=== PATIENT | male | born 1975 | race Caucasian/White ===

== ENCOUNTER 2022-04-23 09:45 | Emergency (ER) | payer OTHER ==
[~2022-04-23] VITALS: Ht 165.1 cm; Wt 57.0 kg
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
[2022-04-23 11:47] VITALS: BP 139/97
== END 2022-04-23 11:47 | disposition home or self-care (01) ==
LOC: ER 09:48
DX: S80.212A Abrasion, left knee, initial encounter (principal); S60.512A Abrasion of left hand, initial encounter; M25.512 Pain in left shoulder; Z28.310 Unvaccinated for COVID-19; V69.9XXA Occupant (driver) (passenger) of heavy transport vehicle injured in unspecified traffic accident, initial encounter; Y92.410 Unspecified street and highway as the place of occurrence of the external cause
CPT/HCPCS: 70450; 71045; 72125; 73030; 73562

== ENCOUNTER 2022-04-26 11:36 | Emergency (ER) | payer OTHER ==
[~2022-04-26] VITALS: Ht 165.1 cm; Wt 63.5 kg
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
[2022-04-26] MEDS ORDERED: ORPHENADRINE 60 MG/2 ML (NORFLEX) AMP (ED ONLY) IM ONE (13:30)
[2022-04-26] MEDS ORDERED: METH-732 PO (13:56)
[2022-04-26] MEDS ORDERED: PRD50T PO (13:56)
[2022-04-26 14:16] VITALS: BP 169/99
== END 2022-04-26 14:16 | disposition home or self-care (01) ==
LOC: EDUNIT# 11:36 → ER 11:39
DX: S40.012A Contusion of left shoulder, initial encounter (principal); F17.210 Nicotine dependence, cigarettes, uncomplicated; V85.5XXA Driver of special construction vehicle injured in nontraffic accident, initial encounter; Y92.410 Unspecified street and highway as the place of occurrence of the external cause
CPT/HCPCS: 99284

== ENCOUNTER 2022-09-01 00:38 | Emergency (ER) | payer OTHER ==
[~2022-09-01 00:38] MED LIST: METH-732 PO; PRD50T PO
[2022-09-01] MEDS ORDERED: KETOROLAC 60 MG/2 ML VIAL IM ONE (02:00)
[2022-09-01] MEDS ORDERED: ORPHENADRINE 60 MG/2 ML (NORFLEX) AMP (ED ONLY) IM ONE (02:00)
[2022-09-01] MEDS ORDERED: MELO15TA39 PO (02:04)
[2022-09-01] MEDS ORDERED: METH-732 PO (02:04)
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
[2022-09-01 02:34] VITALS: BP 114/76
== END 2022-09-01 02:34 | disposition home or self-care (01) ==
LOC: EDUNIT# 00:38 → ER 00:41
DX: M25.512 Pain in left shoulder (principal); F17.210 Nicotine dependence, cigarettes, uncomplicated; Z98.890 Other specified postprocedural states; Z28.310 Unvaccinated for COVID-19
CPT/HCPCS: 99284